=== PATIENT | female | born 1985 | race African-American/Black ===

== ENCOUNTER 2022-03-29 10:21 | Emergency (ER) | payer OTHER ==
[~2022-03-29] VITALS: Ht 177.8 cm; Wt 73.8 kg
[2022-03-29 10:29] VITALS: BP 105/61
[2022-03-29 11:31] LABS: COVID AG,FIA SOURCE NASOPHARYNGEAL
[2022-03-29 11:55] LABS: INFLUENZA TYPE A NEGATIVE FOR TYPE A (NEGATIVE); INFLUENZA TYPE B NEGATIVE FOR TYPE B (NEGATIVE)
== END 2022-03-29 14:13 | disposition home or self-care (01) ==
LOC: EMS 10:21
DX: U07.1 COVID-19 (principal)
CPT/HCPCS: 99283; 87426; 87804; U0003; C9803